=== PATIENT | male | born 1995 | race Caucasian/White ===

== ENCOUNTER 2023-05-01 18:26 | Emergency (ER) | payer OTHER, SELFPAY ==
[2023-05-01 18:29] VITALS: BP 138/90; PULSE 90; RESP 16; TEMP 37; O2SAT 97; BMI 22.3
--- NOTE | 2023-05-01 18:33 | XR_ITS ---
The [address] [address] Patient Name: MONI SHORT MRN: [id number] date: 1995 Sex: M Assigned Patient Location: ER Current Patient Location: ER Accession/Order Number: [id number] Exam Date: 05/01/2023 19:04 Report Date: 05/01/2023 19:46 At the request of: JOVANNA MONTANO Procedure: XR foot RT min 3V EXAM: XR foot RT min 3V HISTORY: Dropped brick on foot COMPARISON: None. TECHNIQUE: 3 views FINDINGS: IMPRESSION: Comminuted displaced fracture of the fourth metatarsal neck. Associated soft tissue edema. No additional fracture, dislocation, subluxation or osseous lesion. Joint spaces are normal. Orthopedic surgical evaluation is necessary Electronically authenticated by: NIKOS RAMOS Date: 05/01/2023 19:46
[2023-05-01] MEDS: KETOROLAC TROMETHAMINE 30 MG/ML VIAL IM (21:57)
[2023-05-01] MEDS: TRAMADOL HCL 50 MG TABLET PO (21:58)
--- NOTE | 2023-05-01 22:08 | ED_ITS ---
HPI - Extremity Injury (Lower) General Chief Complaint: Extremity Injury, Lower Stated Complaint: RT FOOT INJURY Time Seen by Provider: 05/01/23 20:59 Source: patient Mode of arrival: walk-in Limitations: no limitations History of Present Illness HPI Narrative: The patient presented to us one day after he had 32 pound brick fell on his right foot at home when he was doing some home work,The patient has no other injuries Related Data Previous Rx's Medication Instructions Recorded cephalexin 500 mg capsule 500 mg PO Q8H #10 caps 05/01/23 diclofenac sodium 75 mg 75 mg PO Q12H PRN pain #14 tabs 05/01/23 tablet,delayed release tramadol 50 mg tablet 50 mg PO Q8H PRN pain 3 days #9 05/01/23 tabs Allergies Allergy/AdvReac Type Severity Reaction Status Date / Time No Known Drug Allergies Allergy Verified 05/01/23 18:32 Review of Systems ROS Status of ROS 10 or more systems reviewed and unremarkable except as noted in history and below Exam Narrative Exam Narrative: Nurses notes and vital signs reviewed and patient is not hypoxic. General: Well-appearing and in no apparent distress. Skin: Warm, dry, no pallor noted. No rash. Head: Normocephalic, atraumatic. Neck: Supple, non-tender. Eye: Pupils are equal, round and EOMI. No scleral icterus. Ears, Nose, Mouth, and Throat: TM are clear, no nasal mucosal hypertrophy. Oral mucosa is moist, no posterior oropharynx erythema, uvula is mid-line Cardiovascular: Regular Rate and Rhythm without murmur, gallop or rub. Respiratory: No accessory muscle use or respiratory distress. Lungs are clear to auscultation, no wheezing, rales or rhonchi Chest Wall: no tenderness Back: No midline thoracic or lumbar vertebral tenderness. No CVA tenderness Musculoskeletal: normal ROM, no calf or popliteal tenderness,severe swelling of the right foot with ecchymosis mostly toward the leteral aspect , few healing abrasion to the mid tibia that is measuring one and 2 cm Superficial GI: Abdomen is soft, non-distended. Normal bowel sounds. No masses appreciated. No tenderness to palpation. No rebound, guarding, or rigidity noted. Neurological: A&O x4. No cranial nerve dysfunction observed. No truncal ataxia. Moves all extremities. Sensation intact. Psychiatric: Cooperative and interactive. Normal mood and affect. Constitutional Vital Signs, click to edit/add: Last Vital Signs Temp 98.6 F 05/01/23 18:29 Pulse 90 05/01/23 18:29 Resp 16 05/01/23 18:29 BP 138/90 H 05/01/23 18:29 Pulse Ox 97 05/01/23 18:29 O2 Del Method Room Air 05/01/23 18:29 Course Vital Signs Vital signs: Vital Signs Temperature 98.6 F 05/01/23 18:29 Pulse Rate 90 05/01/23 18:29 Respiratory Rate 16 05/01/23 18:29 Blood Pressure 138/90 H 05/01/23 18:29 Pulse Oximetry 97 05/01/23 18:29 Oxygen Delivery Method Room Air 05/01/23 18:29 Temperature 98.6 F 05/01/23 18:29 Pulse Rate 90 05/01/23 18:29 Respiratory Rate 16 05/01/23 18:29 Blood Pressure 138/90 H 05/01/23 18:29 Pulse Oximetry 97 05/01/23 18:29 Oxygen Delivery Method Room Air 05/01/23 18:29 MDM - Extremity Injury (Lower) MDM Narrative Medical decision making narrative: X-ray of the patient right foot shows 4th metatarsal fracture with displacement, the patient's case was discussed with Dr. Ward , and the patient right now we put in posterior splint pain management as well as elevation and nonweightbearing until he is evaluated by the orthopedic service Patient was provided with crutches and a posterior splint with applied in the Emergency Room The patient is to followup with primary care physician in next 2-3 days or to return to the emergency department should any of the signs or symptoms worsen or new symptoms develop. The patient agrees with the following Diagnosis and Treatment plan and the patient will be discharged home. Discharge Plan Discharge Chief Complaint: Extremity Injury, Lower Clinical Impression: Metatarsal boss of right foot Patient Disposition: Home, Self-Care Time of Disposition Decision: 23:00 Condition: Good Mode of Transportation: Private Vehicle Prescriptions / Home Meds: New tramadol 50 mg tablet 50 mg PO Q8H PRN (Reason: pain) 3 Days Qty: 9 0RF diclofenac sodium 75 mg tablet,delayed release (DR/EC) 75 mg PO Q12H PRN (Reason: pain) Qty: 14 0RF cephalexin 500 mg capsule 500 mg PO Q8H Qty: 10 0RF Instructions: Foot Fracture in Adults (ED) Additional Instructions: follow up with Dr Ward [facility] [phone] Stand Alone Forms: Portal Instructions Referrals: ADELINA VICK [Primary Care Provider] - 1 week Discharge Date/Time: 05/01/23 23:16
== END 2023-05-01 23:16 | disposition home or self-care (01) ==
PROVIDERS: Emergency Provider Emergency Medicine; PCP Family Medicine
DX: S92.341A Displaced fracture of fourth metatarsal bone, right foot, initial encounter for closed fracture (principal); W20.8XXA Other cause of strike by thrown, projected or falling object, initial encounter
CPT/HCPCS: 29515; 73630; 96372; 99284